=== PATIENT | male | born 1985 | race Caucasian/White ===

== ENCOUNTER 2019-06-28 19:58 | Emergency (ER) | payer SELFPAY ==
[~2019-06-28] VITALS: Ht 185.4 cm; Wt 99.8 kg
[2019-06-28 20:36] VITALS: BP 160/89
[2019-06-28] MEDS ORDERED: CLOT15CR5 TP (21:16)
--- NOTE | 2019-06-28 21:16 | PHYS DOC ---
Past Medical History Past Medical History: No Pertinent History (JENIFER MEANS APRN) Past Surgical History: No Surgical History (JENIFER MEANS APRN) Alcohol Use: None Drug Use: None (JENIFER MEANS APRN) Attending Signature I have participated in the care of this patient and I have reviewed and agree with all pertinent clinical information above including history, exam, and recommendations. (ROME NEGRETE MD) Adult General Chief Complaint Chief Complaint: SKIN PROBLEM HPI HPI Patient is a 33 year old [f male] who presents with [recurring hives. Patient reports he has had several episodes of hives over the last few years, has been able to have it evaluated. Reports he will take antihistamines, and will help for a little while then eventually his hives come back. States he does not know what is causing, states he is not taking any medication other than antihistamines. States he does not have any change in soap, no animals in the house. Reports it is itchy, reports he takes antihistamines and they do seem to help for a while. Reports today his discomfort worsen, when he noticed some swelling of the skin on his penis. States he has never had this happen before or been swollen and painful like it is. However he does report he has had swelling in his scrotum on previous reactions like this] (JENIFER MEANS APRN) Review of Systems Review of Systems Constitutional: Denies fever or chills [] [] HENT: Denies nasal congestion or sore throat [] Respiratory: Denies cough or shortness of breath [] GI: Denies abdominal pain, nausea, vomiting, bloody stools or diarrhea [] : Denies dysuria or hematuria [] Musculoskeletal: Denies back pain or joint pain [] Integument: Reports widespread hives, swelling to his penis.[] Neurologic: Denies headache, focal weakness or sensory changes [] All other systems were reviewed and found to be within normal limits, except as documented in this note. (JENIFER MEANS APRN) Current Medications Current Medications Current Medications Medications (Trade) Dose Ordered Sig/Srikanth Start Time Stop Time Status Last Admin Dose Admin Methylprednisolone Acetate (DEPO-Medrol 80MG VIAL) 80 mg 1X ONCE 06/28/19 21:30 06/28/19 21:30 DC 06/28/19 21:27 80 MG (ROME NEGRETE MD) Allergies Allergies Allergies Coded Allergies Type Severity Reaction Last Updated Verified No Known Drug Allergies 11/10/13 No (ROME NEGRETE MD) Physical Exam Physical Exam Constitutional: Well developed, well nourished, no acute distress, non-toxic appearance. Widespread hives noted to patient. [] HENT: Normocephalic, atraumatic, bilateral external ears normal, oropharynx moist, no oral exudates, nose normal. [] Neck: Normal range of motion, no tenderness, supple, no stridor. [] Cardiovascular:Heart rate regular rhythm, no murmur [] Lungs & Thorax: Bilateral breath sounds clear to auscultation [] Skin: Warm, dry, no erythema, no rash. Widespread erythematous hives, no pustules, no vesicles noted. Warmth. No lesions noted. Noted is erythema, swelling to penis[] Extremities: No tenderness, no cyanosis, no clubbing, ROM intact, no edema. [] Neurologic: Alert and oriented X 3, normal motor function, normal sensory function, no focal deficits noted. [] Psychologic: Affect normal, judgement normal, mood normal. [] (JENIFER MEANS APRN) Current Patient Data Vital Signs Vital Signs Date Time Temp Pulse Resp B/P (MAP) Pulse Ox O2 Delivery O2 Flow Rate FiO2 06/28/19 20:36 98.2 120 20 160/89 (112) 98 Room Air 98.2 (ROME NEGRETE MD) EKG EKG [] (JENIFER MEANS APRN) Radiology/Procedures Radiology/Procedures [] (JENIFER MEANS APRN) Course & Med Decision Making Course & Med Decision Making Pertinent Labs and Imaging studies reviewed. (See chart for details) Discussed importance of making follow-up with dermatology to determine cause of patient's continued rashes. Discussed consider central cause of his reaction. Discussed use of antifungal cream around his penis for his swelling[] (JENIFER MEANS APRN) Dragon Disclaimer Dragon Disclaimer This electronic medical record was generated, in whole or in part, using a voice recognition dictation system. (JENIFER MEANS APRN) Departure Departure Impression: Primary Impression: Balanitis Additional Impression: Hives of unknown origin Disposition: 01 HOME, SELF-CARE Condition: STABLE Referrals: NO PCP (PCP) Patient Instructions: Balanitis and Foreskin Hygiene, Hives, [id number] Additional Instructions: Continue to take antihistamines he had been taking for your rash. Use the prescription cream on your penis to help with the swelling. Try to get into a hospitality associate to determine if they can find a source of your hives which are recurring. Scripts Clotrimazole/Betamethasone Dip (CLOTRIMAZOLE-BETAMETHASONE CRM) 15 Gm Cream..g. 1 DWAIN TP BID, #15 GM Prov: JENIFER MEANS APRN 06/28/19 Problem Qualifiers JENIFER MEANS APRN Jun 28, 2019 21:16 ROME NEGRETE MD Jun 29, 2019 02:35
[2019-06-28] MEDS ORDERED: methylPREDNISolone ACETATE 80 MG/ML VIAL. IM ONE (21:30)
== END 2019-06-28 21:29 | disposition home or self-care (01) ==
LOC: ER 19:58
DX: N48.1 Balanitis (principal); L50.9 Urticaria, unspecified
CPT/HCPCS: 96372; 99283; J1040